=== PATIENT | male | born 1960 | race Caucasian/White ===

== ENCOUNTER → 2017-04-05 | Outpatient (CLI) | payer OTHER ==
--- NOTE | ~2017-04-05 | CT138 ---
[facility] A Service of [facility] RADIOLOGY TEXT RESULTS PATIENT: ALEJANDRA CASTILLO LOCATION: [facility] : 62 UNIT #: [id number] AGE: [address]: Blayne Wilhelm MD SEX: M ORDER DR: [id number] [place], [place] [address] [id number] O MR#: [id number] [facility] #: [id number] NAME: ALEJANDRA CASTILLO. : 1960 SEX: M STUDY DATE/TIME: 04/05/2017 9:17 UNIT: [facility] ROOM: STUDY DESCRIPTION: CT Lung screening initial Attending Physician: Blayne Wilhelm M.D. Referring Physician: Blayne Wilhelm M.D. Ordering Physician: Blayne Wilehlm M.D. Primary Care Physician: Rik Pulido M.D. MEDICAL IMAGING REPORT This report is preliminary unless electronic signature is present EXAM CT chest without contrast, lung cancer screening. INDICATIONS A-62 pack-year total smoking history. Current smoker. Initial exam. TECHNIQUE CT of the chest was performed without contrast using the low-dose lung cancer screening protocol. Coronal and sagittal reformatted images were obtained. CT dose index 2.6 mg. Please use dose reduction statement. COMPARISON STUDIES No comparisons. FINDINGS Biapical scarring. Emphysema. Calcified granulomas in the left lower lobe. No suspicious pulmonary nodule. No evidence for suspicious lymphadenopathy. There are calcified mediastinal and left hilar lymph nodes. No pleural effusion. Limited imaging of the upper abdomen is unremarkable. The bone windows are unremarkable. IMPRESSION No suspicious pulmonary nodule. ACR Lung-RADS category 1. Followup annual low-dose lung cancer screening chest CT in 1 year Dictated by... Reese Vivas M.D. THIS IS AN ELECTRONICALLY VERIFIED REPORT Reese Vivas M.D. at 04/06/2017 4:59 PM ARS/anjel [facility] A Service of [facility] RADIOLOGY TEXT RESULTS PATIENT: ALEJANDRA CASTILLO LOCATION: [facility] : 62 UNIT #: [id number] AGE: [address]: Blayne Wilhelm MD SEX: M ORDER DR: TD: 04/05/2017 22:28 JOB #: [id number] MEDICAL IMAGING REPORT Page 1 of 1 COPY
== END | disposition home or self-care (01) ==
LOC: CCAT 08:54
DX: F17.210 Nicotine dependence, cigarettes, uncomplicated (principal)
CPT/HCPCS: G0297